=== PATIENT | female | born 1960 | race Caucasian/White ===

== ENCOUNTER 2019-03-21 05:08 | Day surgery (SDC) ==
--- NOTE | 2019-03-13 16:53 | EKG Report ---
Test Performed on : 03/13/2019 4:33:03 PM Test Reason : PAT Blood Pressure : / mmHG Vent. Rate : 104 BPM Atrial Rate : 104 BPM P-R Int : 138 ms QRS Dur : 086 ms QT Int : 348 ms P-R-T Axes : 048 -01 056 degrees QTc Int : 457 ms Sinus tachycardia. Otherwise normal ECG When compared with ECG of 10-OCT-2011 08:50, No significant change was found Confirmed by Vik MULTANI, Kenneth Crooks ([id number]) on 03/15/2019 6:35:49 PM
[2019-03-13 17:19] LABS: HEMATOCRIT 40.4 % (37.0-47.0); HEMOGLOBIN 13.6 g/dL (12.0-16.0); MCH 29.8 PG (27-31); MCHC 33.7 g/dL (33-37); MCV 88.6 FL (81-99); MPV 12.1 FL (7.4-10.4); RBC 4.56 XMIL (4.2-5.4); WBC 5.83 X1000 (4.8-10.8)
[2019-03-13 17:43] LABS: AGAP 11; BUN 16 mg/dL (8-22); CALCIUM 8.6 mg/dL (8.8-10.2); CHLORIDE 100 mmol/L (98-107); COSMO 284; CREATININE 0.5 mg/dL (0.5-0.9); ESTIMATED GFR > 60; GLUCOSE 130 mg/dL (70-104); POTASSIUM 3.6 mmol/L (3.5-5.1); SODIUM 141 mmol/L (136-145); TCO2 30 mmol/L (25-35)
[2019-03-21] MEDS ORDERED: LR 1,000 ML ONE ×2 (05:37→06:32)
[2019-03-21] MEDS ORDERED: KEFZOL 1 GM/D5W 1 GM/50 ML IVPB ONE (05:37)
[2019-03-21] MEDS ORDERED: MARCAINE 0.25% PF/EPI 1:200,000 ONE (06:32)
[2019-03-21] MEDS ORDERED: DIPRIVAN 1% ONE (06:37)
[2019-03-21] MEDS ORDERED: ZEMURON ONE (07:24)
[2019-03-21] MEDS ORDERED: DILAUDID ONE (07:24)
[2019-03-21] MEDS ORDERED: DECADRON ONE (07:24)
[2019-03-21] MEDS ORDERED: ZOFRAN ONE (07:24)
[2019-03-21] MEDS ORDERED: QUELICIN (DOSE) ONE (07:24)
[2019-03-21] MEDS ORDERED: XYLOCAINE-MPF 2% ONE (07:24)
[2019-03-21 07:51] LABS: URINE SOURCE CATH
[2019-03-21 07:54] LABS: BILIRUBIN URINE NEGATIVE (NEGATIVE); BLOOD URINE NEGATIVE (NEGATIVE); COLOR YELLOW; GLUCOSE URINE NEGATIVE (NEGATIVE); KETONE URINE NEGATIVE (NEGATIVE); LEUKOCYTES URINE NEGATIVE (NEGATIVE); NITRITE URINE NEGATIVE (NEGATIVE); PH URINE 6.5; PROTEIN URINE TRACE mg/dL (NEGATIVE); SP GRAVITY URINE 1.022; TURBIDITY URINE CLEAR (CLEAR); UROBILINOGEN URINE NORMAL (NORMAL)
[2019-03-21 07:55] LABS: UR EPITHELIAL CELLS <10 /HPF (<10); URINE BACTERIA NEGATIVE /HPF; URINE RBC <10 /HPF (<10); URINE WBC <10 /HPF (<10)
[2019-03-21] MEDS ORDERED: NEO-SYNEPHRINE ONE ×2 (08:01→08:18)
[2019-03-21] MEDS ORDERED: EPHEDRINE ONE (08:01)
[2019-03-21] MEDS ORDERED: SODIUM CHLORIDE 0.9% 10 ML ONE (08:18)
[2019-03-21] MEDS ORDERED: ROBINUL ONE (08:29)
[2019-03-21] MEDS ORDERED: NEOSTIGMINE ONE (08:45)
[2019-03-21] MEDS ORDERED: NS 1,000 ML ONE (09:15)
[2019-03-21] MEDS: DILAUDID ONE ×4 (09:33→09:57)
[2019-03-21] MEDS: PHENERGAN ONE ×3 (09:45→10:03)
[2019-03-21] MEDS ORDERED: ZOFRAN IV PRN (11:10)
[2019-03-21] MEDS ORDERED: PHENERGAN IM PRN (11:10)
--- NOTE | 2019-03-21 11:30 | OPERATIVE NOTE ---
PROCEDURE DATE: 03/21/2019 PROCEDURE PERFORMED: Repair of diaphragmatic hernia, with a partial wrap ([place]). SURGEON: Jelani Hobbs MD. CANNONEER: Antonella Johnson. PREOPERATIVE DIAGNOSIS: Laryngeal, pharyngeal reflux, gastroesophageal reflux disease, chronic cough, hiatal hernia. POSTOPERATIVE DIAGNOSIS: Laryngeal, pharyngeal reflux, gastroesophageal reflux disease, chronic cough, hiatal hernia. INDICATIONS: This is a 58-year-old with a hiatal hernia and chronic cough. Her manometry study suggested that her lower esophageal sphincter pressures were not low, and did not relax well upon swallowing, so only a partial wrap was planned. DESCRIPTION OF PROCEDURE: Satisfactory general endotracheal anesthesia was achieved, and [facility] I passed a small Cook catheter into her esophagus and followed it with a 53 bougie down custodial into her esophagus. The abdomen was then prepped and draped in a sterile fashion. We anesthetized the skin at 15 cm below the xiphoid. We made a vertical incision, dissected the fascia, scored the fascia, and introduced an 11 trocar. We insufflated through this trocar. Under direct visualization, we used a 11 trocar in the left mid abdomen. We anesthetized the skin of the right upper quadrant, made an incision, introduced the hemostat followed by medium Kevon retractor for the left lobe of the liver. We placed the patient in reverse Trendelenburg at this point, placed a retractor underneath the left lobe of the liver, and lifted it up and held it in position. We then introduced a 11 trocar just to the right of the midline behind the left lobe of the liver, and 1 in the left upper quadrant. We then began incising the peritoneum along the right leigh with the LigaSure. We went from caudad to cephalad. This freed up the periesophageal fat to bring it out of the hiatus. We went from right to left. We looked behind and really there was only a small defect present. We were able to see the left leigh easily. We then lifted up the greater omentum and used the LigaSure to divide the greater omentum away from the fundus along the greater curve, all the way to the left leigh. This was divided with a short gastrics and prevented any injury to the spleen. We then divided the attachments to the left leigh and we entered the mediastinum to the left of the esophagus. After doing that, we turned our attention back to the right side and we had a window behind the stomach. We identified the anterior vagus and protected it from harm. I did not visualize the posterior vagus. But the window behind the esophagus was adequate, the periesophageal fat had been pulled down out of the hiatus. A small Cook catheter was noted to be in the stomach, we advanced the large Cook, the 53, engaged the hiatus where we would know where to put the stitch appropriately. We then placed a silk endo-stitch at the appropriate position, one additional 0 Tycron stitch was also placed with the endo-stitch. This adequately approximated the hiatus of the crura and allowed the esophagus to go through the crura without any extra room. We then pulled the large bougie back to the mid esophagus. We passed our bird beak grasping forceps around the esophagus and grasped the greater curve and delivered it to the right side. We then placed 2 silk Endo stitches at 9 o'clock, the first one being in the esophagus and the second one being right at the gastroesophageal junction. The anterior stomach was then also sewn to the esophagus on the antral left portion of the esophagus, at about 1 o'clock. This provided almost a 270 degree wrap. Two stitches were placed to the left anterior esophagus. We were completely satisfied with our partial wrap. We were satisfied with our diaphragmatic closure. We then removed the small Cook and large bougie out of the stomach and esophagus. Hemostasis was satisfactory. A small laceration of the liver had stopped bleeding. We then let the left lobe of the liver down and took the tension off of it and, again, hemostasis was satisfactory. We flattened the patient, used a Josué-Crow wound closure at each trocar site passing a 2-0 Polysorb through the abdominal wall. We then desufflated. An additional 2-0 Polysorb stitch was placed at the supraumbilical trocar site. We then closed the skin at each incision with 4-0 Polysorb subcuticular stitches. Sterile OpSites were applied. She tolerated it well, was sent to the recovery room in satisfactory condition. cc: MD Irving Coker MD
[2019-03-21] MEDS: NS 1,000 ML IV SCH (11:50)
--- NOTE | 2019-03-21 20:00 | GENERAL SURGERY PROGRESS NOTE ---
DATE: 03/21/2019 It is 4:50 in the afternoon. She is doing well. She is sitting up without significant discomfort. Hemodynamics are satisfactory. I will allow her to have some ice chips this evening. cc: Jelani Hobbs MD
[2019-03-21] MEDS: DILAUDID IV PRN (22:09)
[2019-03-21] MEDS: PERIDEX MT SCH (22:10)
[2019-03-22] MEDS: NS 1,000 ML IV SCH (00:33)
[2019-03-22] MEDS: PERIDEX MT SCH (08:32)
[2019-03-22] MEDS: DILAUDID IV PRN ×2 (08:33→16:57)
[2019-03-22 15:11] VITALS: BP 115/82
--- NOTE | 2019-03-22 20:05 | GENERAL SURGERY PROGRESS NOTE ---
DATE: 03/22/2019 She is afebrile, heart rate 75, blood pressure 115/82. She has been taking clear liquids today just fine. Her wounds are fine. The plan is to discharge her. We discussed her diet and activity. She will return to see me in a week. She will resume her usual medications. She will we use tramadol, Advil, and Tylenol for pain. cc: Jelani Hobbs MD
== END 2019-03-22 18:44 | disposition home or self-care (01) ==
LOC: OPS 05:08 → 4N 05:08 → PAT 05:08 → OPS 03-22 18:44
PROVIDERS: ATTEND Surgery
CPT/HCPCS: 80048; 81001; 85027; 93005; 93010; 94761; 94799; A9270; J0330; J0690; J1100; J1170; J2370; J2405; J2550; J7030; J7120